=== PATIENT | female | born 1965 | race Caucasian/White ===

== ENCOUNTER 2017-12-25 17:11 | Inpatient (IN) | payer OTHER ==
[2017-12-25] MEDS: SOD CHLORIDE 0.9% 1,000 ML IV ×2 (18:17→21:44)
[2017-12-25] MEDS: ONDANSETRON 4 MG INJ IV (18:17)
[2017-12-25] MEDS: KETOROLAC 30 MG INJ IV (18:23)
[2017-12-25 18:33] LABS: ADD MAN DIFF? NO
[2017-12-25 18:38] LABS: WHITE BLOOD COUNT 8.7 10^3/ul (4.8-10.8)
[2017-12-25 18:38] LABS: BASOPHILS % 0.2 % (0.0-2.0); EOSINOPHILS # 0.7 10^3/ul (0.0-0.5); EOSINOPHILS % 8.4 % (0.0-7.0); HEMATOCRIT 38.5 % (37.0-47.0); LYMPHOCYTES # 1.4 10^3/ul (0.8-2.9); LYMPHOCYTES % 16.6 % (15.0-51.0); MEAN CORPUSCULAR HEMOGLOBIN 27.7 pg (29.0-33.0); MEAN CORPUSCULAR HGB CONC 33.8 g/dl (32.0-37.0); MEAN CORPUSCULAR VOLUME 81.9 fl (82.0-101.0); MEAN PLATELET VOLUME 9.4 fl (7.4-10.4); MONOCYTE # 0.6 10^3/ul (0.3-0.9); MONOCYTES % 7.4 % (0.0-11.0); NEUTROPHIL # 5.8 10^3/ul (1.6-7.5); NEUTROPHILS % 66.7 % (39.0-77.0); PLATELET COUNT 307 10^3/UL (140-415); RED CELL DISTRIBUTION WIDTH 13.7 % (11.5-14.5)
[2017-12-25 18:53] LABS: ADD UMIC YES; UR ASCORBIC ACID NEGATIVE (NEGATIVE); UR BACTERIA FEW /HPF (NONE SEEN); UR BILIRUBIN (Dip) NEGATIVE (NEGATIVE); UR BLOOD (Dip) NEGATIVE (NEGATIVE); UR BUDDING YEAST FEW /HPF (NONE SEEN); UR CLARITY CLOUDY (CLEAR); UR COLOR YELLOW (YELLOW); UR GLUCOSE (Dip) NEGATIVE (NEGATIVE); UR KETONES (Dip) 1+ mg/dL (NEGATIVE); UR LEUKOCYTE ESTERASE (Dip) 2+ Leu/ul (NEGATIVE); UR MUCUS FEW /HPF (NONE SEEN); UR NITRITE (Dip) POSITIVE (NEGATIVE); UR RBC 5 /HPF (0-5); UR SPECIFIC GRAVITY (Dip) 1.011 (1.003-1.030); UR SQUAMOUS EPITHELIAL CELL FEW /HPF (FEW); UR TOTAL PROTEIN (Dip) NEGATIVE (NEGATIVE); UR UROBILINOGEN (Dip) NEGATIVE (NEGATIVE); UR WBC 11 /HPF (0-5)
[2017-12-25 19:02] LABS: ALANINE AMINOTRANSFERASE 56 IU/L (13-69); ALBUMIN 4.1 g/dl (3.3-4.9); ALBUMIN/GLOBULIN RATIO 0.93; ALKALINE PHOSPHATASE 562 IU/L (42-121); AMYLASE 100 U/L (11-123); ANION GAP 18 (8-16); ASPARTATE AMINO TRANSFERASE 109 IU/L (15-46); BILIRUBIN,INDIRECT 0.4 mg/dl (0-1.1); BILIRUBIN,TOTAL 0.4 mg/dl (0.2-1.3); BLOOD UREA NITROGEN 6 mg/dl (7-20); CALCIUM 9.6 mg/dl (8.4-10.2); CARBON DIOXIDE 25 mmol/L (21-31); CHLORIDE 104 mmol/L (97-110); CREATININE 0.55 mg/dl (0.44-1.00); GLUCOSE 122 mg/dl (70-220); LIPASE 448 U/L (23-300); POTASSIUM 3.9 mmol/L (3.5-5.1); SODIUM 143 mmol/L (135-144); TOTAL PROTEIN 8.5 g/dl (6.1-8.1)
[2017-12-25] MEDS: CEFTRIAXONE 1 GM/50 ML (PMX) 50 ML IVPB (20:06)
[2017-12-25 20:24] LABS: LACTIC ACID 0.8 mmol/L (0.5-2.0)
[2017-12-25] MEDS ORDERED: BISACODYL 10 MG SUPP PR (22:00)
[2017-12-25] MEDS ORDERED: DOCUSATE SODIUM 100 MG CAP PO (22:00)
[2017-12-25] MEDS ORDERED: ACETAMINOPHEN 325 MG TAB PO (22:00)
[2017-12-25] MEDS ORDERED: MAGNESIUM HYDROXIDE 30ML CUP PO (22:00)
[2017-12-25] MEDS ORDERED: NACL 0.9% 3 ML SYG IV (22:00)
[2017-12-25] MEDS: SOD CHLORIDE 0.9% 100 ML (22:13)
[2017-12-25] MEDS: IOHEXOL 300MG/ML 150 ML BTL (22:14)
[2017-12-25 22:35] LABS: LACTATE DEHYDROGENASE 2876 IU/L (313-618)
[2017-12-25 23:00] LABS: CANCER ANTIGEN 125 23.3 U/ml (0.0-35.0)
[2017-12-25 23:00] LABS: CARCINOEMBRYONIC ANTIGEN 19.1 ng/ml (0.0-5.0)
[2017-12-26] MEDS: HYDROCODONE/APAP (5/325) TAB PO ×4 (01:42→22:10)
[2017-12-26] MEDS: SOD CHLORIDE 0.9% 1,000 ML IV ×3 (07:49→23:14)
[2017-12-26 08:52] LABS: ADD MAN DIFF? NO
[2017-12-26] MEDS: FAMOTIDINE 20 MG TAB PO ×2 (09:12→20:48)
[2017-12-26 09:13] LABS: BASOPHILS % 0.3 % (0.0-2.0); EOSINOPHILS # 0.8 10^3/ul (0.0-0.5); EOSINOPHILS % 12.3 % (0.0-7.0); HEMATOCRIT 34.4 % (37.0-47.0); HEMOGLOBIN 11.5 g/dl (12.0-16.0); MEAN CORPUSCULAR HEMOGLOBIN 27.6 pg (29.0-33.0); MEAN CORPUSCULAR HGB CONC 33.4 g/dl (32.0-37.0); MEAN CORPUSCULAR VOLUME 82.7 fl (82.0-101.0); MEAN PLATELET VOLUME 9.7 fl (7.4-10.4); MONOCYTE # 0.5 10^3/ul (0.3-0.9); MONOCYTES % 8.5 % (0.0-11.0); NEUTROPHIL # 3.9 10^3/ul (1.6-7.5); NEUTROPHILS % 62.3 % (39.0-77.0); PLATELET COUNT 252 10^3/UL (140-415); RED BLOOD COUNT 4.16 10^6/ul (4.20-5.40); RED CELL DISTRIBUTION WIDTH 13.7 % (11.5-14.5)
[2017-12-26 09:13] LABS: WHITE BLOOD COUNT 6.2 10^3/ul (4.8-10.8)
[2017-12-26 09:19] LABS: ALANINE AMINOTRANSFERASE 51 IU/L (13-69); ALBUMIN 3.2 g/dl (3.3-4.9); ALBUMIN/GLOBULIN RATIO 0.84; ALKALINE PHOSPHATASE 414 IU/L (42-121); ANION GAP 10 (8-16); ASPARTATE AMINO TRANSFERASE 95 IU/L (15-46); BILIRUBIN,INDIRECT 0.3 mg/dl (0-1.1); BILIRUBIN,TOTAL 0.3 mg/dl (0.2-1.3); BLOOD UREA NITROGEN 6 mg/dl (7-20); CALCIUM 8.8 mg/dl (8.4-10.2); CARBON DIOXIDE 27 mmol/L (21-31); CHLORIDE 106 mmol/L (97-110); CREATININE 0.52 mg/dl (0.44-1.00); GLUCOSE 93 mg/dl (70-220); MAGNESIUM 1.7 mg/dl (1.7-2.5); PHOSPHORUS 4.3 mg/dl (2.5-4.9); POTASSIUM 3.6 mmol/L (3.5-5.1); SODIUM 139 mmol/L (135-144)
[2017-12-26 09:28] LABS: INR 1.07; PT RATIO 1.1
[2017-12-26 09:31] LABS: PARTIAL THROMBOPLASTIN TIME 30.1 Sec (25.0-35.0)
[2017-12-26] MEDS: CEFTRIAXONE 1 GM/50 ML (PMX) 50 ML IVPB (20:48)
[2017-12-27] MEDS: HYDROCODONE/APAP (5/325) TAB PO ×3 (05:29→18:02)
[2017-12-27 06:02] LABS: ADD MAN DIFF? NO
[2017-12-27 06:05] LABS: BASOPHILS % 0.3 % (0.0-2.0); EOSINOPHILS # 0.9 10^3/ul (0.0-0.5); EOSINOPHILS % 12.1 % (0.0-7.0); HEMOGLOBIN 11.8 g/dl (12.0-16.0); LYMPHOCYTES # 1.2 10^3/ul (0.8-2.9); LYMPHOCYTES % 16.9 % (15.0-51.0); MEAN CORPUSCULAR HEMOGLOBIN 27.9 pg (29.0-33.0); MEAN CORPUSCULAR HGB CONC 33.7 g/dl (32.0-37.0); MEAN CORPUSCULAR VOLUME 82.7 fl (82.0-101.0); MEAN PLATELET VOLUME 9.3 fl (7.4-10.4); MONOCYTE # 0.5 10^3/ul (0.3-0.9); MONOCYTES % 6.9 % (0.0-11.0); NEUTROPHIL # 4.6 10^3/ul (1.6-7.5); NEUTROPHILS % 62.7 % (39.0-77.0); PLATELET COUNT 251 10^3/UL (140-415); RED BLOOD COUNT 4.23 10^6/ul (4.20-5.40); RED CELL DISTRIBUTION WIDTH 13.7 % (11.5-14.5)
[2017-12-27 06:05] LABS: WHITE BLOOD COUNT 7.3 10^3/ul (4.8-10.8)
[2017-12-27 06:53] LABS: MAGNESIUM 1.7 mg/dl (1.7-2.5)
[2017-12-27 06:56] LABS: ALANINE AMINOTRANSFERASE 49 IU/L (13-69); ALBUMIN 3.2 g/dl (3.3-4.9); ALBUMIN/GLOBULIN RATIO 0.88; ALKALINE PHOSPHATASE 430 IU/L (42-121); ANION GAP 11 (8-16); ASPARTATE AMINO TRANSFERASE 89 IU/L (15-46); BILIRUBIN,INDIRECT 0.2 mg/dl (0-1.1); BILIRUBIN,TOTAL 0.2 mg/dl (0.2-1.3); BLOOD UREA NITROGEN 4 mg/dl (7-20); CALCIUM 8.9 mg/dl (8.4-10.2); CARBON DIOXIDE 27 mmol/L (21-31); CHLORIDE 106 mmol/L (97-110); CREATININE 0.58 mg/dl (0.44-1.00); GLUCOSE 93 mg/dl (70-220); POTASSIUM 3.8 mmol/L (3.5-5.1); SODIUM 140 mmol/L (135-144); TOTAL PROTEIN 6.8 g/dl (6.1-8.1)
[2017-12-27] MEDS: FAMOTIDINE 20 MG TAB PO ×2 (08:28→20:36)
[2017-12-27] MEDS: MAGNESIUM SULFATE 2 GM/50 ML 50 ML IVPB (12:40)
[2017-12-27] MEDS: SOD CHLORIDE 0.9% 1,000 ML IV ×2 (12:42→23:35)
[2017-12-27] MEDS: BISACODYL (EC) 5 MG TAB PO (15:36)
[2017-12-27] MEDS: MAGNESIUM CITRATE 300 ML BTL PO (18:01)
[2017-12-27] MEDS: POLYETHYLENE GLYCOL 3350 119 GM POWDER PO (18:01)
[2017-12-27] MEDS: ONDANSETRON 4 MG INJ IV ×2 (18:38→23:17)
[2017-12-27] MEDS: morphine 2 MG INJ IV ×2 (18:49→23:17)
[2017-12-27] MEDS: CEFTRIAXONE 1 GM/50 ML (PMX) 50 ML IVPB (20:35)
[2017-12-28] MEDS: HYDROCODONE/APAP (5/325) TAB PO ×4 (00:32→20:01)
[2017-12-28] MEDS: SOD CHLORIDE 0.9% 1,000 ML IV ×2 (04:31→11:45)
[2017-12-28] MEDS: POLYETHYLENE GLYCOL 3350 119 GM POWDER PO (05:39)
[2017-12-28 06:36] LABS: ADD MAN DIFF? NO
[2017-12-28 06:38] LABS: BASOPHILS % 0.4 % (0.0-2.0); EOSINOPHILS # 0.7 10^3/ul (0.0-0.5); HEMATOCRIT 34.4 % (37.0-47.0); HEMOGLOBIN 11.4 g/dl (12.0-16.0); LYMPHOCYTES % 14.1 % (15.0-51.0); MEAN CORPUSCULAR HGB CONC 33.1 g/dl (32.0-37.0); MEAN CORPUSCULAR VOLUME 81.5 fl (82.0-101.0); MEAN PLATELET VOLUME 9.6 fl (7.4-10.4); MONOCYTE # 0.5 10^3/ul (0.3-0.9); MONOCYTES % 7.1 % (0.0-11.0); NEUTROPHIL # 4.7 10^3/ul (1.6-7.5); NEUTROPHILS % 67.5 % (39.0-77.0); PLATELET COUNT 262 10^3/UL (140-415); RED BLOOD COUNT 4.22 10^6/ul (4.20-5.40)
[2017-12-28 06:57] LABS: INR 1.09; PROTIME 14.2 Sec (11.9-14.9); PT RATIO 1.1
[2017-12-28 07:05] LABS: PHOSPHORUS 3.7 mg/dl (2.5-4.9)
[2017-12-28 07:05] LABS: MAGNESIUM 2.1 mg/dl (1.7-2.5)
[2017-12-28 07:08] LABS: ANION GAP 13 (8-16); BLOOD UREA NITROGEN 4 mg/dl (7-20); CALCIUM 8.8 mg/dl (8.4-10.2); CARBON DIOXIDE 28 mmol/L (21-31); CHLORIDE 106 mmol/L (97-110); CREATININE 0.54 mg/dl (0.44-1.00); GLUCOSE 98 mg/dl (70-220); POTASSIUM 3.5 mmol/L (3.5-5.1); SODIUM 143 mmol/L (135-144)
[2017-12-28] MEDS: BISACODYL (EC) 5 MG TAB PO (08:44)
[2017-12-28] MEDS: FAMOTIDINE 20 MG TAB PO ×2 (08:44→20:14)
[2017-12-28] MEDS: ONDANSETRON 4 MG INJ IV (09:39)
[2017-12-28] MEDS ORDERED: morphine LIQ (10 MG/5 ML) CUP PO (13:30)
[2017-12-28] MEDS ORDERED: PROPOFOL 20 ML (18:47)
[2017-12-28] MEDS: CEFTRIAXONE 1 GM/50 ML (PMX) 50 ML IVPB (20:13)
[2017-12-29] MEDS: SOD CHLORIDE 0.9% 1,000 ML IV ×2 (00:44→01:36)
[2017-12-29] MEDS: HYDROCODONE/APAP (5/325) TAB PO ×5 (02:04→22:54)
[2017-12-29] MEDS: FAMOTIDINE 20 MG TAB PO ×2 (08:45→21:04)
== END 2017-12-29 23:10 | disposition home or self-care (01) | DRG 375 ==
LOC: 2NE 20:20 → FTE 17:11
PROC: 0DBN8ZX Excision of Sigmoid Colon, Via Natural or Artificial Opening Endoscopic, Diagnostic (ICD-10-PCS; principal; 2017-12-28 15:00)
DX: C78.5 Secondary malignant neoplasm of large intestine and rectum (principal); C79.51 Secondary malignant neoplasm of bone; C56.1 Malignant neoplasm of right ovary; N39.0 Urinary tract infection, site not specified; K56.690 Other partial intestinal obstruction; R59.1 Generalized enlarged lymph nodes; B96.20 Unspecified Escherichia coli [E. coli] as the cause of diseases classified elsewhere
CPT/HCPCS: 71260; 72157; 72158; 74176; 76856; 80048; 80053; 81001; 81025; 82150; 82378; 83605; 83615; 83690; 83735; 84100; 85025; 85610; 85730; 86304; 87040; 87086; 88305; 88341; 88342; 96374; 96375; 97161; 99285-25

== ENCOUNTER 2018-01-10 17:50 | Emergency (ER) | payer OTHER ==
[2018-01-10] MEDS ORDERED: morphine 4 MG/ML VIAL IM (18:28)
[2018-01-10] MEDS: METHOCARBAMOL 750 MG TAB PO (19:04)
[2018-01-10] MEDS: HYDROmorphONE 2 MG/ML SYG IM (19:07)
[2018-01-10] MEDS: KETOROLAC 60 MG INJ IM (19:10)
== END 2018-01-10 20:24 | disposition home or self-care (01) ==
LOC: FTE 17:50
DX: M54.9 Dorsalgia, unspecified (principal); C78.00 Secondary malignant neoplasm of unspecified lung; C18.9 Malignant neoplasm of colon, unspecified; C77.2 Secondary and unspecified malignant neoplasm of intra-abdominal lymph nodes
CPT/HCPCS: 81025; 96372; 99284-25

== ENCOUNTER 2018-01-18 17:37 | Inpatient (IN) | payer OTHER ==
[2018-01-18 19:03] LABS: ADD MAN DIFF? NO
[2018-01-18] MEDS: HYDROmorphONE 0.5 MG/0.5 ML SYG IV (19:03)
[2018-01-18] MEDS: ONDANSETRON 4 MG INJ IV ×2 (19:03→23:15)
[2018-01-18 19:06] LABS: BASOPHILS % 0.5 % (0.0-2.0); EOSINOPHILS # 0.2 10^3/ul (0.0-0.5); EOSINOPHILS % 2.2 % (0.0-7.0); HEMATOCRIT 34.8 % (37.0-47.0); HEMOGLOBIN 11.4 g/dl (12.0-16.0); LYMPHOCYTES % 12.4 % (15.0-51.0); MEAN CORPUSCULAR HEMOGLOBIN 26.8 pg (29.0-33.0); MEAN CORPUSCULAR HGB CONC 32.8 g/dl (32.0-37.0); MEAN CORPUSCULAR VOLUME 81.9 fl (82.0-101.0); MEAN PLATELET VOLUME 9.4 fl (7.4-10.4); MONOCYTE # 0.6 10^3/ul (0.3-0.9); MONOCYTES % 7.7 % (0.0-11.0); NEUTROPHIL # 6.1 10^3/ul (1.6-7.5); NEUTROPHILS % 72.9 % (39.0-77.0); NUCLEATED RED BLOOD CELLS% 0.4 /100WBC (0.0-0.0); PLATELET COUNT 252 10^3/UL (140-415); RED BLOOD COUNT 4.25 10^6/ul (4.20-5.40); RED CELL DISTRIBUTION WIDTH 15.7 % (11.5-14.5)
[2018-01-18 19:06] LABS: WHITE BLOOD COUNT 8.3 10^3/ul (4.8-10.8)
[2018-01-18 19:25] LABS: ALANINE AMINOTRANSFERASE 32 IU/L (13-69); ALBUMIN 3.4 g/dl (3.3-4.9); ALKALINE PHOSPHATASE 944 IU/L (42-121); ANION GAP 19 (8-16); ASPARTATE AMINO TRANSFERASE 163 IU/L (15-46); BILIRUBIN,INDIRECT 0.5 mg/dl (0-1.1); BILIRUBIN,TOTAL 0.5 mg/dl (0.2-1.3); BLOOD UREA NITROGEN 16 mg/dl (7-20); CALCIUM 9.6 mg/dl (8.4-10.2); CARBON DIOXIDE 24 mmol/L (21-31); CHLORIDE 100 mmol/L (97-110); CREATININE 0.69 mg/dl (0.44-1.00); GLUCOSE 130 mg/dl (70-220); INR 1.19; LIPASE 88 U/L (23-300); POTASSIUM 3.9 mmol/L (3.5-5.1); PROTIME 15.3 Sec (11.9-14.9); PT RATIO 1.2; SODIUM 139 mmol/L (135-144); TOTAL PROTEIN 8.2 g/dl (6.1-8.1)
[2018-01-18 19:26] LABS: PARTIAL THROMBOPLASTIN TIME 37.8 Sec (25.0-35.0)
[2018-01-18 19:37] LABS: TROPONIN-I < 0.012 ng/ml (0.000-0.120)
[2018-01-18] MEDS: IOHEXOL 100 ML (20:10)
[2018-01-18] MEDS: IOHEXOL 300MG/ML 150 ML BTL (20:10)
[2018-01-18] MEDS: SOD CHLORIDE 0.9% 100 ML ×2 (20:10→20:11)
[2018-01-18 20:44] LABS: URINE PH (Dip) POC 5.5 (5.0-8.5)
[2018-01-18 20:44] LABS: URINE BLOOD (Dip) POC 3+ (NEGATIVE); URINE GLUCOSE (Dip) POC Negative (NEGATIVE); URINE KETONES (Dip) POC 1+ (NEGATIVE); URINE LEUKOCYTE EST (Dip) POC Negative (NEGATIVE); URINE NITRITE (Dip) POC Negative (NEGATIVE); URINE TOTAL PROTEIN POC 2+ (NEGATIVE)
[2018-01-18] MEDS: SOD CHLORIDE 0.9% 1,000 ML IV (21:23)
[2018-01-18] MEDS: LORAZEPAM 2 MG INJ IV (23:15)
[2018-01-18] MEDS: HYDROmorphONE 1 MG/ML SYG IV (23:15)
[2018-01-19 01:57] LABS: CREATINE KINASE 240 IU/L (23-200)
[2018-01-19] MEDS ORDERED: POLYETHYLENE GLYCOL 17 GM PACKET PO (02:00)
[2018-01-19 02:07] LABS: CK INDEX 0.1; CK-MB < 0.22 ng/ml (0.0-2.4); TROPONIN-I < 0.012 ng/ml (0.000-0.120)
[2018-01-19] MEDS: SOD CHLORIDE 0.9% 1,000 ML IV ×4 (03:15→21:11)
[2018-01-19] MEDS: morphine LIQ (10 MG/5 ML) CUP PO ×4 (03:15→19:05)
[2018-01-19] MEDS: ONDANSETRON 4 MG INJ IV ×2 (04:18→21:52)
[2018-01-19] MEDS: PANTOPRAZOLE (EC) 40 MG TAB PO (06:28)
[2018-01-19] MEDS: HYDROmorphONE 2 MG/ML SYG IV ×4 (06:28→22:15)
[2018-01-19] MEDS: IBUPROFEN 600 MG TAB PO (06:28)
[2018-01-19] MEDS: DOCUSATE SODIUM 100 MG CAP PO (08:30)
[2018-01-19] MEDS: SENNA TAB PO ×4 (08:30→21:00)
[2018-01-19 09:03] LABS: CREATINE KINASE 217 IU/L (23-200)
[2018-01-19 09:07] LABS: CK INDEX 0.1; CK-MB < 0.22 ng/ml (0.0-2.4); TROPONIN-I < 0.012 ng/ml (0.000-0.120)
[2018-01-19] MEDS ORDERED: BISACODYL 10 MG SUPP PR (12:30)
[2018-01-19] MEDS ORDERED: MAGNESIUM HYDROXIDE 30ML CUP PO (12:30)
[2018-01-19 15:16] LABS: URIC ACID 8.8 mg/dl (3.1-7.9)
[2018-01-19] MEDS: oxyCODONE (CR) 15 MG TAB [oxyCONTIN] PO ×2 (20:46→22:15)
[2018-01-19] MEDS: LIDOCAINE 5% PATCH TD (22:30)
[2018-01-20] MEDS: ONDANSETRON 4 MG INJ IV ×2 (03:15→08:34)
[2018-01-20] MEDS: HYDROmorphONE 2 MG/ML SYG IV ×5 (03:24→21:57)
[2018-01-20 05:54] LABS: ADD MAN DIFF? NO
[2018-01-20 05:58] LABS: BASOPHILS % 0.4 % (0.0-2.0); EOSINOPHILS # 0.3 10^3/ul (0.0-0.5); EOSINOPHILS % 4.1 % (0.0-7.0); HEMATOCRIT 30.9 % (37.0-47.0); HEMOGLOBIN 9.7 g/dl (12.0-16.0); LYMPHOCYTES # 1.1 10^3/ul (0.8-2.9); LYMPHOCYTES % 14.6 % (15.0-51.0); MEAN CORPUSCULAR HEMOGLOBIN 26.6 pg (29.0-33.0); MEAN CORPUSCULAR HGB CONC 31.4 g/dl (32.0-37.0); MEAN CORPUSCULAR VOLUME 84.7 fl (82.0-101.0); MEAN PLATELET VOLUME 9.8 fl (7.4-10.4); MONOCYTE # 0.6 10^3/ul (0.3-0.9); MONOCYTES % 8.5 % (0.0-11.0); NEUTROPHIL # 5.1 10^3/ul (1.6-7.5); NEUTROPHILS % 67.6 % (39.0-77.0); NUCLEATED RED BLOOD CELLS% 0.3 /100WBC (0.0-0.0); PLATELET COUNT 243 10^3/UL (140-415); RED BLOOD COUNT 3.65 10^6/ul (4.20-5.40); RED CELL DISTRIBUTION WIDTH 15.9 % (11.5-14.5)
[2018-01-20 05:58] LABS: WHITE BLOOD COUNT 7.6 10^3/ul (4.8-10.8)
[2018-01-20] MEDS: PANTOPRAZOLE (EC) 40 MG TAB PO (06:20)
[2018-01-20 06:35] LABS: ALANINE AMINOTRANSFERASE 19 IU/L (13-69); ALBUMIN 2.8 g/dl (3.3-4.9); ALBUMIN/GLOBULIN RATIO 0.84; ALKALINE PHOSPHATASE 664 IU/L (42-121); ANION GAP 12 (8-16); ASPARTATE AMINO TRANSFERASE 131 IU/L (15-46); BILIRUBIN,INDIRECT 0.5 mg/dl (0-1.1); BILIRUBIN,TOTAL 0.5 mg/dl (0.2-1.3); BLOOD UREA NITROGEN 11 mg/dl (7-20); CALCIUM 9.2 mg/dl (8.4-10.2); CARBON DIOXIDE 26 mmol/L (21-31); CHLORIDE 105 mmol/L (97-110); CREATININE 0.54 mg/dl (0.44-1.00); GLUCOSE 95 mg/dl (70-220); POTASSIUM 4.5 mmol/L (3.5-5.1); SODIUM 138 mmol/L (135-144); TOTAL PROTEIN 6.1 g/dl (6.1-8.1)
[2018-01-20 06:37] LABS: MAGNESIUM 1.7 mg/dl (1.7-2.5)
[2018-01-20 06:37] LABS: PHOSPHORUS 4.8 mg/dl (2.5-4.9)
[2018-01-20] MEDS: morphine LIQ (10 MG/5 ML) CUP PO (07:00)
[2018-01-20] MEDS: POLYETHYLENE GLYCOL 17 GM PACKET PO (08:35)
[2018-01-20] MEDS: LIDOCAINE 5% PATCH TD (08:36)
[2018-01-20] MEDS: oxyCODONE (CR) 15 MG TAB [oxyCONTIN] PO ×2 (08:36→21:00)
[2018-01-20] MEDS: SENNA TAB PO ×2 (08:36→21:00)
[2018-01-20] MEDS ORDERED: LIDOCAINE 5% PATCH TD (09:00)
[2018-01-20] MEDS: LORAZEPAM 2 MG INJ IV (10:40)
[2018-01-20] MEDS: SOD CHLORIDE 0.9% 1,000 ML IV ×2 (10:54→19:03)
[2018-01-20] MEDS: PAMIDRONATE 90 MG in SOD CHLORIDE 0.9% 500 ML IV (11:00)
[2018-01-20 12:18] LABS: CARCINOEMBRYONIC ANTIGEN 69.8 ng/ml (0.0-5.0)
[2018-01-20 21:19] LABS: ANION GAP 12 (8-16); BLOOD UREA NITROGEN 8 mg/dl (7-20); CALCIUM 8.7 mg/dl (8.4-10.2); CARBON DIOXIDE 25 mmol/L (21-31); CHLORIDE 104 mmol/L (97-110); GLUCOSE 105 mg/dl (70-220); POTASSIUM 3.9 mmol/L (3.5-5.1); SODIUM 137 mmol/L (135-144)
[2018-01-20 21:50] LABS: IONIZED CALCIUM 1.2 mmol/L (1.1-1.4)
[2018-01-20] MEDS: HYDROmorphONE 2 MG TAB PO (23:20)
[2018-01-21] MEDS: HYDROmorphONE 2 MG/ML SYG IV ×7 (00:40→12:19)
[2018-01-21] MEDS: SOD CHLORIDE 0.9% 1,000 ML IV ×2 (02:04→09:56)
[2018-01-21] MEDS: PANTOPRAZOLE (EC) 40 MG TAB PO (05:39)
[2018-01-21 06:16] LABS: MAGNESIUM 1.6 mg/dl (1.7-2.5)
[2018-01-21 06:16] LABS: PHOSPHORUS 4.7 mg/dl (2.5-4.9)
[2018-01-21 06:38] LABS: IONIZED CALCIUM 1.3 mmol/L (1.1-1.4)
[2018-01-21 06:41] LABS: ANION GAP 14 (8-16); BLOOD UREA NITROGEN 6 mg/dl (7-20); CARBON DIOXIDE 23 mmol/L (21-31); CHLORIDE 104 mmol/L (97-110); CREATININE 0.53 mg/dl (0.44-1.00); GLUCOSE 97 mg/dl (70-220); POTASSIUM 3.9 mmol/L (3.5-5.1); SODIUM 137 mmol/L (135-144)
[2018-01-21] MEDS: oxyCODONE (CR) 15 MG TAB [oxyCONTIN] PO (08:34)
[2018-01-21] MEDS: SENNA TAB PO (08:34)
[2018-01-21] MEDS: LIDOCAINE 5% PATCH TD ×2 (08:43→09:55)
[2018-01-21] MEDS: POLYETHYLENE GLYCOL 17 GM PACKET PO (09:00)
[2018-01-21] MEDS: HYDROmorphONE 2 MG TAB PO (09:02)
[2018-01-21] MEDS: ONDANSETRON 4 MG INJ IV ×2 (10:56→12:15)
[2018-01-21] MEDS: IBUPROFEN 600 MG TAB PO (11:53)
[2018-01-21] MEDS ORDERED: HYDROmorphONE 1 MG/ML SYG IV (12:00)
[2018-01-21] MEDS ORDERED: oxyCODONE (CR) 15 MG TAB [oxyCONTIN] PO (14:00)
== END 2018-01-21 12:20 | disposition home health service (06) | DRG 948 ==
LOC: E/R 17:37 → 6WM 01-19 01:45
DX: G89.3 Neoplasm related pain (acute) (chronic) (principal); C18.9 Malignant neoplasm of colon, unspecified; C79.60 Secondary malignant neoplasm of unspecified ovary; C79.51 Secondary malignant neoplasm of bone; C79.89 Secondary malignant neoplasm of other specified sites; C78.7 Secondary malignant neoplasm of liver and intrahepatic bile duct; R11.0 Nausea; T40.605A Adverse effect of unspecified narcotics, initial encounter
CPT/HCPCS: 36415; 71045; 71275; 72158; 74177; 80048; 80053; 81003; 81025; 82330; 82378; 82550; 82553; 83690; 83735; 84100; 84484; 84560; 85025; 85610; 85730; 86304; 87081; 93005; 93970; 96361; 96374; 96375; 97162; 99285-25; J2430